=== PATIENT | female | born 1950 | race Caucasian/White ===

== ENCOUNTER 2022-04-30 12:49 | Emergency (ER) | payer OTHER, MEDICARE | END 2022-04-30 14:10 | disposition home or self-care (01) | LOC: ER1 12:49 | DX: S52.502A Unspecified fracture of the lower end of left radius, initial encounter for closed fracture (principal); W19.XXXA Unspecified fall, initial encounter; Y92.096 Garden or yard of other non-institutional residence as the place of occurrence of the external cause | CPT/HCPCS: 29125; 73090; 73110; 99283 ==